=== PATIENT | female | born 1940 | race Hispanic/Latino ===

== ENCOUNTER 2023-01-21 09:39 | Inpatient (IN) | payer MEDICARE ==
[~2023-01-21] VITALS: Ht 157.5 cm; Wt 59.0 kg
[2023-01-21] VITALS (18 sets, daily range): BP systolic 115–157; BP diastolic 48–81; PULSE 78–110; RESP 18–38; TEMP 97–98.4; O2SAT 94–98
[2023-01-21] MEDS ORDERED: LACTATED RINGER'S 1,000 ML IV ONE (09:45)
[2023-01-21 10:25] LABS: BASOPHILS # (AUTO) 0.1 (0.0-0.1); BASOPHILS % 0.6 % (0.0-1.0); EOSINOPHILS % 0.1 % (0.0-6.0); HEMATOCRIT 40.6 % (34.2-44.1); HEMOGLOBIN 13.2 g/dL (12.0-16.0); LYMPHOCYTES # (AUTO) 0.8 (1.0-3.2); LYMPHOCYTES % 9.2 % (18.0-39.1); MEAN CORPUSCULAR HEMOGLOBIN 29.3 pg (28-32); MEAN CORPUSCULAR HGB CONC 32.5 g/dL (31-35); MONOCYTES # (AUTO) 0.5 (0.2-0.8); MONOCYTES % 6.3 % (4.4-11.3); NEUTROPHILS # (AUTO) 7.2 (2.1-6.9); NEUTROPHILS % 83.6 % (38.7-80.0); PLATELET COUNT 247 x10e3/uL (140-360); RED BLOOD COUNT 4.51 x10e6/uL (3.6-5.1); RED CELL DISTRIBUTION WIDTH 13.6 % (11.7-14.4)
[2023-01-21 10:52] LABS: ALBUMIN 3.9 g/dL (3.5-5.0); ALBUMIN/GLOBULIN RATIO 0.9 (0.8-2.0); ANION GAP 21.2 mmol/L (8-16); CALCIUM 8.9 mg/dL (8.4-10.2); CREATININE, SERUM 1.34 mg/dL (0.57-1.11); POTASSIUM 4.2 mmol/L (3.5-5.1)
[2023-01-21 12:43] LABS: CLARITY,URINE CLEAR (CLEAR); COLOR,URINE YELLOW (YELLOW)
[2023-01-21 12:44] LABS: KETONES,URINE NEGATIVE (NEGATIVE); LEUKOCYTE ESTERASE ,URINE NEGATIVE (NEGATIVE); NITRITE,URINE NEGATIVE (NEGATIVE); PROTEIN,URINE DIPSTICK NEGATIVE (NEGATIVE); URINE UROBILINOGEN 0.2 mg/dL (0.2 - 1)
[2023-01-21 12:55] LABS: EPITHELIAL CELLS,URINE FEW /LPF; RBC,URINE 0-5 /HPF (0-5); WBC,URINE (MAN) 0-5 /HPF (0-5)
[2023-01-21 12:57] LABS: BACTERIA,URINE RARE /HPF; TRANSITIONAL EPI CELLS,URINE FEW
[2023-01-21] MEDS ORDERED: INSULIN REGULAR, HUMAN 3ML VL 100 UNIT in SODIUM CHLORIDE 0.9% 100 ML IV SCH ×2 (13:45)
[2023-01-21] MEDS ORDERED: MAGNESIUM SULF 1GRAM/DEXTROSE 100 ML IV PRN ×2 (13:45→23:15)
[2023-01-21] MEDS ORDERED: POTASSIUM CHLORIDE 20MEQ/100ML 100 ML INJ PRN ×2 (13:45→23:15)
[2023-01-21] MEDS ORDERED: POTASSIUM CHLORIDE 20MEQ/100ML 200 ML IV PRN (13:45)
[2023-01-21 14:15] LABS: ANION GAP 19.5 mmol/L (8-16); CALCIUM 9.3 mg/dL (8.4-10.2); CREATININE, SERUM 1.09 mg/dL (0.57-1.11); MAGNESIUM 1.6 MG/DL (1.3-2.1); POTASSIUM 4.5 mmol/L (3.5-5.1)
[2023-01-21] MEDS ORDERED: ONDANSETRON HCL INJ 2MG/ML 2ML 2 MG/ML VIAL IV PRN (14:30)
[2023-01-21] MEDS ORDERED: ACETAMINOPHEN 325 MG TAB PO PRN (14:30)
[2023-01-21] MEDS ORDERED: ZOLPIDEM TARTRATE 5 MG TAB PO PRN (14:30)
[2023-01-21] MEDS: SODIUM CHLORIDE 0.9% 1000ML 1,000 ML IV SCH ×3 (14:52→21:45)
[2023-01-21] MEDS: DEXTROSE 5%/0.45% SOD CHL 1,000 ML IV SCH ×2 (15:47→21:03)
[2023-01-21 18:16] LABS: ANION GAP 15.2 mmol/L (8-16); CREATININE, SERUM 0.91 mg/dL (0.57-1.11); MAGNESIUM 1.6 MG/DL (1.3-2.1); POTASSIUM 3.2 mmol/L (3.5-5.1)
[2023-01-21 22:18] LABS: ANION GAP 13.1 mmol/L (8-16); CALCIUM 8.2 mg/dL (8.4-10.2); CREATININE, SERUM 0.79 mg/dL (0.57-1.11); MAGNESIUM 1.5 MG/DL (1.3-2.1); POTASSIUM 3.1 mmol/L (3.5-5.1)
[2023-01-22] VITALS (20 sets, daily range): BP systolic 117–147; BP diastolic 50–83; PULSE 70–97; RESP 15–25; TEMP 97.7–99.4; O2SAT 95–100
[2023-01-22] MEDS ORDERED: Morphine 2mg Syringe 2 MG/ML SYR IV PRN
[2023-01-22] MEDS ORDERED: POTASSIUM CHLORIDE 20 MEQ TAB CR PO PRN
[2023-01-22] MEDS ORDERED: IPRATROPIUM BROMIDE 0.02% 2.5 ML NEB NEB PRN
[2023-01-22] MEDS ORDERED: ACETAMINOPHEN 325 MG TAB PO PRN
[2023-01-22] MEDS ORDERED: DOCUSATE SODIUM 100 MG CAP PO PRN
[2023-01-22] MEDS ORDERED: HYDROCODONE/APAP 5MG-325MG TAB PO PRN
[2023-01-22] MEDS ORDERED: ALBUTEROL SULF 0.083% NEB SOLN 3 ML NEB NEB PRN
[2023-01-22] MEDS ORDERED: ONDANSETRON HCL INJ 2MG/ML 2ML 2 MG/ML VIAL IV PRN
[2023-01-22] MEDS: DEXTROSE 5%/0.45% SOD CHL 1,000 ML IV SCH ×2 (01:38→05:06)
[2023-01-22] MEDS: SODIUM CHLORIDE 0.9% 1000ML 1,000 ML IV SCH ×4 (01:45→19:27)
[2023-01-22 02:05] LABS: ANION GAP 12.5 mmol/L (8-16); CALCIUM 8.7 mg/dL (8.4-10.2); CREATININE, SERUM 0.81 mg/dL (0.57-1.11); MAGNESIUM 2.1 MG/DL (1.3-2.1); POTASSIUM 3.5 mmol/L (3.5-5.1)
[2023-01-22 05:43] LABS: BASOPHILS % 0.5 % (0.0-1.0); EOSINOPHILS % 0.2 % (0.0-6.0); HEMATOCRIT 35.5 % (34.2-44.1); HEMOGLOBIN 11.6 g/dL (12.0-16.0); LYMPHOCYTES # (AUTO) 0.9 (1.0-3.2); MEAN CORPUSCULAR HEMOGLOBIN 29.2 pg (28-32); MEAN CORPUSCULAR HGB CONC 32.7 g/dL (31-35); MEAN CORPUSCULAR VOLUME 89.4 fL (81-99); MONOCYTES # (AUTO) 0.6 (0.2-0.8); NEUTROPHILS # (AUTO) 6.9 (2.1-6.9); NEUTROPHILS % 81.2 % (38.7-80.0); PLATELET COUNT 225 x10e3/uL (140-360); RED BLOOD COUNT 3.97 x10e6/uL (3.6-5.1); RED CELL DISTRIBUTION WIDTH 13.5 % (11.7-14.4)
[2023-01-22 06:04] LABS: ALBUMIN 3.2 g/dL (3.5-5.0); ALBUMIN/GLOBULIN RATIO 0.9 (0.8-2.0); ANION GAP 11.6 mmol/L (8-16); CALCIUM 8.4 mg/dL (8.4-10.2); CREATININE, SERUM 0.8 mg/dL (0.57-1.11); POTASSIUM 3.6 mmol/L (3.5-5.1)
[2023-01-22] MEDS ORDERED: INSULIN GLARGINE 100 UNITS/ML VIAL SQ ONE (07:30)
[2023-01-22] MEDS ORDERED: DEXTROSE 50% SYRINGE 50 ML IV PRN (08:30)
[2023-01-22] MEDS: INSULIN REGULAR, HUMAN 100 UNIT/1 ML SQ SCH ×4 (09:28→21:34)
[2023-01-22] MEDS ORDERED: SIMETHICONE 80 MG CHEW PO PRN (12:00)
[2023-01-22] MEDS: MUPIROCIN 2% OINT 22 GM TUBE TOP SCH ×2 (12:40→17:00)
[2023-01-22 13:55] LABS: ANION GAP 13.9 mmol/L (8-16); BLOOD UREA NITROGEN < 5 mg/dL (7-26); CALCIUM 8.7 mg/dL (8.4-10.2); CARBON DIOXIDE 23 mmol/L (22-29); CHLORIDE 108 mmol/L (98-107); CREATININE, SERUM 0.85 mg/dL (0.57-1.11); GLUCOSE 157 mg/dL (74-118); POTASSIUM 3.9 mmol/L (3.5-5.1); SODIUM 141 mmol/L (136-145)
[2023-01-22 13:56] LABS: BUN/CREATININE RATIO 6 (6-25)
[2023-01-22 22:59] LABS: ANION GAP 12.6 mmol/L (8-16); CALCIUM 8.4 mg/dL (8.4-10.2); CREATININE, SERUM 0.86 mg/dL (0.57-1.11); POTASSIUM 3.6 mmol/L (3.5-5.1)
[2023-01-22] MEDS ORDERED: DIPHENHYDRAMINE HCL INJ 50 MG/ML VIAL IV PRN ×2 (23:46)
[2023-01-23] VITALS: BP 136/75; PULSE 73; RESP 18; TEMP 97.7; O2SAT 99
[2023-01-23 04:00] VITALS: BP 124/58; PULSE 76; RESP 20; TEMP 97.7; O2SAT 99
[2023-01-23] MEDS: SODIUM CHLORIDE 0.9% 1000ML 1,000 ML IV SCH (06:00)
[2023-01-23 07:06] LABS: BASOPHILS # (AUTO) 0.1 (0.0-0.1); BASOPHILS % 0.8 % (0.0-1.0); EOSINOPHILS % 0.5 % (0.0-6.0); HEMATOCRIT 38.8 % (34.2-44.1); HEMOGLOBIN 12.4 g/dL (12.0-16.0); LYMPHOCYTES # (AUTO) 1.1 (1.0-3.2); LYMPHOCYTES % 17.9 % (18.0-39.1); MEAN CORPUSCULAR HEMOGLOBIN 28.8 pg (28-32); MEAN CORPUSCULAR VOLUME 90.2 fL (81-99); MONOCYTES # (AUTO) 0.3 (0.2-0.8); MONOCYTES % 4.9 % (4.4-11.3); NEUTROPHILS # (AUTO) 4.5 (2.1-6.9); NEUTROPHILS % 75.7 % (38.7-80.0); PLATELET COUNT 238 x10e3/uL (140-360); RED CELL DISTRIBUTION WIDTH 13.8 % (11.7-14.4)
[2023-01-23 07:27] LABS: ANION GAP 13.4 mmol/L (8-16); CREATININE, SERUM 0.84 mg/dL (0.57-1.11); POTASSIUM 4.4 mmol/L (3.5-5.1)
[2023-01-23] MEDS: INSULIN REGULAR, HUMAN 100 UNIT/1 ML SQ SCH (07:30)
[2023-01-23 07:34] VITALS: BP 136/74; PULSE 89; RESP 19; TEMP 98.6; O2SAT 99
[2023-01-23 10:58] VITALS: PULSE 87; RESP 18; O2SAT 99
[2023-01-23 11:19] VITALS: BP 141/65; PULSE 83; RESP 17; TEMP 97.9; O2SAT 98
[2023-01-23] MEDS ORDERED: ONDANSETRON HCL 4 MG ORAL DISINTEGRATING TAB PO PRN (13:15)
[2023-01-23] MEDS ORDERED: AMLODIPINE BESY10 MG PO (13:28)
[2023-01-23] MEDS ORDERED: OMEPRAZOLE40 MG PO (13:28)
[2023-01-23] MEDS ORDERED: ASPIRIN EC81 MG PO (13:28)
[2023-01-23] MEDS ORDERED: METFORMIN HCL1000 MG PO (13:28)
[2023-01-23] MEDS ORDERED: ATORVASTATIN CA80 MG PO (13:28)
[2023-01-23 16:02] VITALS: BP 134/78; PULSE 88; RESP 19; TEMP 97.8; O2SAT 99
== END 2023-01-23 16:28 | disposition home or self-care (01) | DRG 638 ==
LOC: ER 09:42 → ERHOLD 13:40 → ICU 16:43 → MED/SURG3 01-22 16:42
PROVIDERS: ADMIT Internal Medicine; ATTEND Internal Medicine
DX: E11.10 Type 2 diabetes mellitus with ketoacidosis without coma (principal); N17.9 Acute kidney failure, unspecified; E11.65 Type 2 diabetes mellitus with hyperglycemia; E86.0 Dehydration; R35.89 Other polyuria; Z79.85 Long-term (current) use of injectable non-insulin antidiabetic drugs; Z79.84 Long term (current) use of oral hypoglycemic drugs
CPT/HCPCS: 0223U; 36415; 71045; 80048; 80053; 81001; 82550; 82948; 83036; 83735; 83880; 84484; 85025; 85379; 93005; 93306; 94799; 96361; 96372; 99284; J1815; J3475; J3480; J7030; J7050